=== PATIENT | male | born 1995 | race Two or more races ===

== ENCOUNTER 2020-03-24 16:05 | Emergency (ER) | payer MEDICAID ==
[~2020-03-24] VITALS: Ht 180.3 cm; Wt 93.0 kg
[2020-03-24 16:59] VITALS: BP 137/71
[2020-03-24] MEDS ORDERED: ONDANSETRON 4MG ODT PO ONE (19:15)
[2020-03-24] MEDS ORDERED: KETOROLAC 60MG/2ML VIAL IM ONE (19:15)
[2020-03-24] MEDS ORDERED: LOPERAMIDE HCL 2MG CAPSULE PO ONE (19:15)
== END 2020-03-24 19:40 | disposition home or self-care (01) ==
LOC: ER 16:05
DX: R19.7 Diarrhea, unspecified (principal); R50.9 Fever, unspecified
CPT/HCPCS: 99283; J1885; Q0162